=== PATIENT | female | born 1960 | race Caucasian/White ===

== ENCOUNTER 2018-01-08 15:59 | Emergency (ER) | payer MEDICAID, OTHER ==
--- NOTE | 2018-01-08 16:18 | UC ---
Complaint Female HPI - HPI Summary HPI Summary: Pt presents with odor to urine, frequency, and burning during urination for 3 days. She says that she gets UTIs often and this feels the same. Has been drinking cranberry juice with no relief. Denies fever, chills, abdominal pain, n /v/d/c, incontinence, vaginal discharge/rash/itch. - History Of Current Complaint Stated Complaint: URINARY COMPLAINT Time Seen by Provider: 01/08/18 16:09 Hx Obtained From: Patient Hx Last Menstrual Period: n/a Onset/Duration: Gradual Onset Timing: Constant Severity Initially: Mild Severity Currently: Mild Pain Intensity: 2 Pain Scale Used: 0-10 Numeric - Allergies/Home Medications Allergies/Adverse Reactions: Allergies Allergy/AdvReac Type Severity Reaction Status Date / Time No Known Allergies Allergy Verified 01/08/18 16:23 Home Medications: Home Medications Atorvastatin* [Lipitor*] 20 mg PO DAILY 01/08/18 [History Confirmed 01/08/18] BuPROPion XL* [Bupropion XL*] 150 mg PO DAILY 01/08/18 [History Confirmed ] Metoprolol Tartrate TAB* [Lopressor TAB*] 100 mg PO BID 01/08/18 [History Confirmed 01/08/18] PMH/Surg Hx/FS Hx/Imm Hx Endocrine History: Diabetes, Dyslipidemia Cardiovascular History: Hypertension - Surgical History Surgical History: Yes Surgery Procedure, Year, and Place: - Family History Known Family History: Positive: Hypertension, Diabetes - Social History Alcohol Use: None Substance Use Type: None Smoking Status (MU): Never Smoked Tobacco Review of Systems Constitutional: Negative Skin: Negative Respiratory: Negative Cardiovascular: Negative Gastrointestinal: Negative Genitourinary: Dysuria, Frequency Neurological: Negative Psychological: Negative All Other Systems Reviewed And Are Negative: Yes Physical Exam - Summary Physical Exam Summary: GENERAL: Obese. NAD. SKIN: No rashes, sores, ulcers, masses, lesions. NECK: Supple. Nontender. No lymphadenopathy. CHEST: CTAB. No r/r/w. No accessory muscle use. Breathing comfortably and in no distress. CV: RRR. Without m/r/g. Pulses intact. Brisk cap refill. ABDOMEN: Soft. NTTP. No distention or guarding. No CVA tenderness. Bowel sounds present x4. NEURO: Alert. CN II-XII grossly intact. PSYCH: Age appropriate behavior. Declined pelvic exam. Triage Information Reviewed: Yes Complaint Female Dx - Course Course Of Treatment: UA negative. Given her comorbidities - Will treat symptomatically with macrobid. - Differential Dx/Diagnosis Provider Diagnoses: Dysuria Discharge - Sign-Out/Discharge Documenting (check all that apply): Discharge - Discharge Plan Condition: Stable Disposition: HOME Prescriptions: Nitrofurantoin Macrocrystal [Nitrofurantoin] 100 mg PO BID #10 capsule Patient Education Materials: Urinary Tract Infection in Women (ED) Referrals: No Primary Care Phys,NOPCP [Primary Care Provider] - Additional Instructions: If you develop a fever, shortness of breath, chest pain, new or worsening symptoms - please call your PCP or go to the ED. Your blood pressure was high at todays visit. Please see your primary provider within 4 weeks for recheck and re-evaluation. - Billing Disposition and Condition Condition: STABLE Disposition: HOME
[2018-01-08 16:23] VITALS: BP 147/72
== END 2018-01-08 16:37 | disposition home or self-care (01) ==
LOC: UCCORT 15:59
DX: R30.0 Dysuria (principal); E11.9 Type 2 diabetes mellitus without complications; I10 Essential (primary) hypertension; E78.5 Hyperlipidemia, unspecified
CPT/HCPCS: 81003; 99212; G0463